=== PATIENT | female | born 1945 | race Caucasian/White ===

== ENCOUNTER 2019-04-06 11:15 | Inpatient (IN) | payer MEDICARE, MEDICAID ==
[~2019-04-06] VITALS: Ht 160 cm; Wt 74.8 kg
[2019-04-06] VITALS (9 sets, daily range): BP systolic 110–149; BP diastolic 50–87
--- NOTE | 2019-04-06 11:23 | NUR ---
CODE STROKE ACTIVATED
--- NOTE | 2019-04-06 11:25 | NUR ---
PATIENT TAKEN TO CT.
[2019-04-06] MEDS ORDERED: IOHEXOL-350 100 ML VIAL IV ONE (11:28)
--- NOTE | 2019-04-06 11:28 | NUR ---
PATIENT AWAKE ALERT TO NAME NOTED DURING ASSESTMENT RT SIDE WEAKNESS DRIFT TO RT ARM AND RT LEG ,LAST WELL KNOWN TIME UNKNOWN @ THIS TIME ,TO CT HEAD WITH MONITOR ,OBTAINED HEPLOCK 20 RAC
[2019-04-06 11:30] LABS: BASOPHILS % (AUTO) 0.3 % (0.0-2.0); EOSINOPHILS % (AUTO) 0.3 % (0.0-6.0); HEMATOCRIT 47 % (33-45); HEMOGLOBIN 15.8 g/dL (11.5-14.8); LYMPHOCYTES # (AUTO) 1.3 /CMM (0.8-4.8); LYMPHOCYTES % (AUTO) 14.4 % (20.0-44.0); MEAN CORPUSCULAR HGB CONC 34 g/dl (31.0-36.0); MEAN CORPUSCULAR VOLUME 94 fL (82-100); MONOCYTES # (AUTO) 0.6 /CMM (0.1-1.30); MONOCYTES % (AUTO) 7.1 % (2.0-12.0); NEUTROPHILS # (AUTO) 6.8 /CMM (1.8-8.9); NEUTROPHILS % (AUTO) 77.9 % (43.0-81.0); PLATELET COUNT (AUTO) 166 /CMM (150-450); RED BLOOD CELL COUNT(AUTO) 5.03 MIL/uL (4.0-5.2); WHITE BLOOD COUNT (AUTO) 8.7 K/uL (4.3-11.0)
[2019-04-06 11:36] LABS: CALCIUM, SERUM 9.4 mg/dL (8.5-10.1); CARBON DIOXIDE 29 mmol/L (21-32); CHLORIDE 106 mmol/L (98-107); CREATININE 0.7 mg/dL (0.6-1.3); GLUCOSE 120 mg/dL (74-106); POTASSIUM 4.1 mmol/L (3.5-5.1); SODIUM SERUM 141 mmol/L (136-145); UREA NITROGEN, BLOOD 17 mg/dL (7-18)
--- NOTE | 2019-04-06 11:40 | NUR ---
CALLED NURSING SUP TELE BED.
[2019-04-06 11:44] LABS: CHOLESTEROL 189 mg/dL (<200); HDL CHOLESTEROL 56 mg/dL (40-60); LDL 122 mg/dL (0-99); TRIGLYCERIDES 59 mg/dL (30-150)
[2019-04-06] MEDS ORDERED: SIMV-46 PO (11:46)
[2019-04-06] MEDS ORDERED: ATEN25TA PO (11:46)
[2019-04-06] MEDS ORDERED: ASCO-352 PO (11:46)
[2019-04-06] MEDS ORDERED: RIVA10TA PO (11:46)
[2019-04-06] MEDS ORDERED: LEVO100T9 PO (11:46)
[2019-04-06] MEDS ORDERED: LORA10TA7 PO (11:46)
[2019-04-06] MEDS ORDERED: DIGO125T PO (11:46)
[2019-04-06] MEDS ORDERED: ZINC220C6 PO (11:46)
[2019-04-06] MEDS ORDERED: MULT-24 PO (11:46)
--- NOTE | 2019-04-06 12:02 | NUR ---
Tele Yves @ bedside
--- NOTE | 2019-04-06 12:03 | NUR ---
BED 324-1
--- NOTE | 2019-04-06 12:10 | NUR ---
No TPA per Neuro
--- NOTE | 2019-04-06 12:22 | NUR ---
PAGED [facility].
--- NOTE | 2019-04-06 12:23 | NUR ---
CALLED NURSING SUP FOR ICU BED UPGRADE.
[2019-04-06] MEDS ORDERED: PROTHROMBIN COMPLEX CONCENTR IV ONE ×3 (12:30→14:30)
[2019-04-06] MEDS ORDERED: WATER FOR INJECTION STERILE IV ONE ×3 (12:30→14:30)
--- NOTE | 2019-04-06 12:42 | NUR ---
Patient NISH Score 13 noted patient RT side weakness and Rt facial drooping weakness to Rt side her swallow Eval failed (RN )
--- NOTE | 2019-04-06 13:05 | NUR ---
Pharmacy Marcelina @ bedside double check meds and drip
--- NOTE | 2019-04-06 13:30 | NUR ---
Edgar given called Pharmacy spoke to Marcelina she came @ bedside meds in the apr un able sign in ,Marcelina will check and shewill be back
--- NOTE | 2019-04-06 13:47 | NUR ---
Patient Sander Chang clean energy policy analyst @ bedside
--- NOTE | 2019-04-06 13:53 | NUR ---
Dr. Garcia @ bedside spoke to Family @ bedside regarding care and plan ,result
--- NOTE | 2019-04-06 14:06 | NUR ---
NURSING SUP GAVE ICU BED 259. GIVE 5 MINUTES BEFORE TAKING PT UP.
--- NOTE | 2019-04-06 15:07 | NUR ---
Jaxson arthur to Britany GILL 259
--- NOTE | 2019-04-06 15:10 | NUR ---
RN NOTE: Received patient in Room 259, patient was awake and alert, Stateless speaking only. Transferred to the bed and made her comfortable. Complete body assessment done. Skin intact with (L) cheek abrasion noted with 3 stitches. No facial drooping was noted. (R) upper and lower extremity weakness was noted. Able to follow simple commands. HOB elevated. O2 2L/min via NC saturating 95% with controlled A. fib on the ferruler. (R) AC 20G and (R) wrist 22G was placed from ER. Call light within reach. Needs anticipated. Debra Silva DNP was in the unit and made aware of the patient's admission to the unit. Pending admission orders.
[2019-04-06] MEDS ORDERED: BLOOD SUGAR DIAGNOSTIC 1 EACH STRIP IN SCH (17:30)
[2019-04-06] MEDS: BLOOD SUGAR DIAGNOSTIC 1 EACH STRIP IN SCH (18:03)
--- NOTE | 2019-04-06 19:45 | NUR ---
RN NOTE: Bedside report was given to BRIDGET Moulton for continuity of care. Patient passed bedside swallow evaluation by the RN. Daughter Emely at the bedside and patient was noted swallowing well and drinking thin liquid with no discomfort and no coughing noted. Last NIHSS score was 4 and Debra Silva DNP was informed about it. Updated the patient's contact information at the patient and informed BRIDGET Moulton to contact Emely first then Jenny (another daughter) of the patient.
--- NOTE | 2019-04-06 22:06 | NUR ---
PROJECT DEVELOPMENT COORDINATOR. INITIAL ASSESSMENT. RECEIVED THE PT REST ON THE BED. AWAKE, ALERT FOLLOW COMMANDS , RT SIDE FACIAL DROOP AND RT SIDE UPPER AND LOWER EXTREMITY WEAKNESS. HOB ELEVATED. WILL CONTINUE TO MONITOR VITALS.
[2019-04-07] VITALS (24 sets, daily range): BP systolic 91–160; BP diastolic 53–99
[2019-04-07] MEDS: BLOOD SUGAR DIAGNOSTIC 1 EACH STRIP IN SCH ×5 (00:44→23:49)
[2019-04-07 04:29] LABS: BASOPHILS % (AUTO) 0.3 % (0.0-2.0); EOSINOPHILS % (AUTO) 0.8 % (0.0-6.0); HEMATOCRIT 45 % (33-45); HEMOGLOBIN 15.1 g/dL (11.5-14.8); LYMPHOCYTES # (AUTO) 1.4 /CMM (0.8-4.8); LYMPHOCYTES % (AUTO) 16.5 % (20.0-44.0); MEAN CORPUSCULAR HGB CONC 34 g/dl (31.0-36.0); MEAN CORPUSCULAR VOLUME 93 fL (82-100); MONOCYTES # (AUTO) 0.7 /CMM (0.1-1.30); NEUTROPHILS # (AUTO) 6.2 /CMM (1.8-8.9); NEUTROPHILS % (AUTO) 74.4 % (43.0-81.0); PLATELET COUNT (AUTO) 168 /CMM (150-450); RED BLOOD CELL COUNT(AUTO) 4.81 MIL/uL (4.0-5.2); WHITE BLOOD COUNT (AUTO) 8.4 K/uL (4.3-11.0)
[2019-04-07 04:46] LABS: CALCIUM, SERUM 8.9 mg/dL (8.5-10.1); CREATININE 0.6 mg/dL (0.6-1.3); POTASSIUM 3.8 mmol/L (3.5-5.1)
--- NOTE | 2019-04-07 06:09 | NUR ---
RESEARCH NEUROPSYCHOLOGIST. AM CARE. ORAL CARE, BED BATH GIVEN. LINEN CHANGED. REMAINING SAME OXYGEN 2L VIA NASAL CANNULA TOLERATED WELL. SAT 96%. NO ACUTE DISTRESS NOTED, TESTER/LIFT TRUCKER SHOWING A FIB, HOB ELEVBATED, NEURO STATUS SAME. NO NEW CHANGES. RT SIDE WEAKNESS. WILL CONTINUE TO MONITOR VITALS.
--- NOTE | 2019-04-07 09:47 | NUR ---
received pt from shift supervisor film processing, s/p hemorrhagic and ischemic stroked, R side weakness, alert, follows commands, speech is clear, R side mild weakness, able to swallow, A fib controlled, NC 2L, tolerates diet, uses bedpan, good urine output, v/s stable, no pain, pt turned and repositioned, daughter at the bedside.
[2019-04-07] MEDS ORDERED: LORATADINE 10 MG TABLET PO PRN (10:00)
[2019-04-07] MEDS: DIGOXIN 0.125 MG TABLET PO SCH (12:45)
--- NOTE | 2019-04-07 13:28 | NUR ---
Social service consult requested by MD for stroke protocol. Per chart review and MD notes, pt is a 73-year-old female history of atrial fibrillation and HLD who presented to the ED via EMS paramedics after staff in her apartment found her on the ground. RADIATION PROTECTION ENGINEER along with JAKI Ochoa met with the pt bedside. Pt is Kazakh speaking. JAKI Ochoa assisted with translation. Pt is altered, disoriented and does not respond appropriately to questions at this time. Pt is unable to provide meaningful information. RADIATION PROTECTION ENGINEER is unable to complete the PHQ-9 assessment at this time. RADIATION PROTECTION ENGINEER to complete the PHQ-9 assessment once pt is alert and oriented enough to provide meaningful information.
--- NOTE | 2019-04-07 16:16 | NUR ---
pt is resting in the bed, alert, follows commands, less weakness on the R side, walked with PT, A fib controlled, on 2L NC saturating well, tolerates diet, OK urine output, v/s stable, no pain, pt cleaned an repositioned.
[2019-04-07] MEDS: ATENOLOL 25 MG TABLET PO SCH (17:00)
--- NOTE | 2019-04-07 19:25 | NUR ---
ICU/RN notes PATIENT RECEIVED IN BED, RESTING COMFORTABLY AT THIS TIME, IN NO ACUTE DISTRESS, BREATHING EVEN AND UNLABORED. NO SHORTNESS OF BREATH NOTED. PATIENT ALERT AND ORIENTED X 2, DENIES ANY PAIN OR DISCOMFORT AT THIS TIME. A-FIB ON THE MONITOR. IV SITES WITH NO S/S OF INFECTION, INFILTRATION. DAUGHTER AT BED SIDE. SAFETY MAINTAINED, BED AT THE LOWEST LOCKED POSITION, BED ALARM ON, EDUCATED PATIENT TO USE CALL LIGHT FOR ASSISTANCE, CALL LIGHT WITHIN EASY REACH. WILL CONTINUE TO MONITOR PER PLAN OF CARE.
[2019-04-07] MEDS: ATORVASTATIN 40 MG TABLET PO SCH (22:29)
[2019-04-08] VITALS (17 sets, daily range): BP systolic 101–140; BP diastolic 30–114
[2019-04-08 04:38] LABS: BASOPHILS % (AUTO) 0.4 % (0.0-2.0); EOSINOPHILS % (AUTO) 2.2 % (0.0-6.0); HEMATOCRIT 45 % (33-45); HEMOGLOBIN 15.3 g/dL (11.5-14.8); LYMPHOCYTES # (AUTO) 1.8 /CMM (0.8-4.8); LYMPHOCYTES % (AUTO) 27.1 % (20.0-44.0); MEAN CORPUSCULAR HGB CONC 34 g/dl (31.0-36.0); MEAN CORPUSCULAR VOLUME 94 fL (82-100); MONOCYTES # (AUTO) 0.6 /CMM (0.1-1.30); MONOCYTES % (AUTO) 9.6 % (2.0-12.0); NEUTROPHILS # (AUTO) 4.1 /CMM (1.8-8.9); NEUTROPHILS % (AUTO) 60.7 % (43.0-81.0); PLATELET COUNT (AUTO) 158 /CMM (150-450); RED BLOOD CELL COUNT(AUTO) 4.81 MIL/uL (4.0-5.2); WHITE BLOOD COUNT (AUTO) 6.8 K/uL (4.3-11.0)
[2019-04-08 04:57] LABS: CALCIUM, SERUM 8.8 mg/dL (8.5-10.1); CREATININE 0.7 mg/dL (0.6-1.3); POTASSIUM 3.6 mmol/L (3.5-5.1)
[2019-04-08] MEDS: BLOOD SUGAR DIAGNOSTIC 1 EACH STRIP IN SCH ×4 (06:00→23:29)
--- NOTE | 2019-04-08 06:58 | NUR ---
ICU/RN exit notes PATIENT REMAINED IN BED, RESTING COMFORTABLY AT THIS TIME, IN NO ACUTE DISTRESS, BREATHING EVEN AND UNLABORED. NO SHORTNESS OF BREATH NOTED. PATIENT ALERT AND ORIENTED X 2, THAI SPEAKING, DENIES ANY PAIN OR DISCOMFORT AT THIS TIME. A-FIB ON THE MONITOR. IV SITES WITH NO S/S OF INFECTION, INFILTRATION. DUE MEDICATIONS GIVEN ORDERED, TOLERATED WELL. NEEDS ATTENDANT, KEPT CLEAN AND DRY. STILL WITH MILD RIGHT SIDED WEAKNESS. SAFETY MAINTAINED, BED AT THE LOWEST LOCKED POSITION, BED ALARM ON. CALL LIGHT WITHIN EASY REACH. WILL ENDORSE TO AM SHIFT NURSE FOR HELEN.
[2019-04-08] MEDS: LEVOTHYROXINE SODIUM 100 MCG TABLET PO SCH (07:34)
--- NOTE | 2019-04-08 08:07 | NUR ---
received pt from harnessmaker apprentice, alert, follows commands, mild R side weakness, A fib controlled, 2L 02 sat well, no edema, tolerates feeding, OK urine output, v/s stable, no pain, pt turned and repositioned.
[2019-04-08] MEDS: ZINC SULFATE 220 MG CAPSULE PO SCH (08:46)
[2019-04-08] MEDS: MULTIVITAMINS,THERAGRAN 1 UDTAB TABLET PO SCH (08:46)
[2019-04-08] MEDS: ATENOLOL 25 MG TABLET PO SCH ×2 (08:47→16:33)
[2019-04-08] MEDS ORDERED: DIGOXIN INJ 0.5 MG/2 ML AMPUL IV ONE (10:00)
[2019-04-08] MEDS: DIGOXIN 0.125 MG TABLET PO SCH (12:05)
--- NOTE | 2019-04-08 14:34 | NUR ---
pt transferred to [facility], ACLS followed, a/o x 4, v/s stable, no pain.
--- NOTE | 2019-04-08 14:45 | NUR ---
RN INTERNATIONAL NOTE RECEIVED REPORT FROM JARVIS GILL.PATIENT IN ROOM 117-2.ALERT ORIENTED.ABLE TO MAKE NEEDS KNOWN.FAMILY AT BEDSIDE.IV LINES ARE INTACT AND PATENT.BE DI SLOW AND IN LOCKED POSITION.MAL LIGHT IN REACH.BED ALARM ON .SRX3.ON TELE MONITOR AFIB CONTROLLED WITH HR IN 70'S.WILL CONTINUE TO MONITOR.
--- NOTE | 2019-04-08 15:35 | NUR ---
Social service consult requested by MD for stroke protocol. Per chart review and MD notes, pt is a 73-year-old female history of atrial fibrillation and HLD who presented to the ED via EMS paramedics after staff in her apartment found her on the ground. SHREDDED FILLER MACHINE WRAPPER LAYER met with pt. and her daughter Jenny and son Puma bedside. Pt is alert and oriented x 2. Pt appears to be confused and is not able to provide information. Pt. was not able to state her date of or home address. Daughter reports, pt was able to state date of and address prior to this hospitalization. Per daughter pt resides with her son Puma in a two story house. Pt. was independent with ADLs prior to this hospitalization. Pt is not able to articulate if she is feeling depressed or sad. Pt was able to use a walker with PT today with assistance. Pt appears to have good family support. Pt's daughters Jenny and Emely are her emergency contacts. SHREDDED FILLER MACHINE WRAPPER LAYER provided family with active listening and supportive counseling. PHQ-9 assessment was completed.
--- NOTE | 2019-04-08 18:50 | NUR ---
PIPE STEM ALIGNER CLOSING NOTE PATIENT IN BED.ALERT ORIENTED.ABLE TO MAKE NEEDS KNOWN.FAMILY AT BEDSIDE.IV LINES ARE INTACT AND PATENT.BED IS LOW AND IN LOCKED POSITION.CALL LIGHT IN REACH.BED ALARM ON .SRX3.ON TELE MONITOR AFIB CONTROLLED WITH HR DOWN TO 40'S TO 50'S WITH PAUSE.PATIENT ASYMPTOMATIC. MADE AWARE.NNO.WILL CONTINUE TO MONITOR.WILL ENDORSE TO PM NURSE FOR HELEN.
--- NOTE | 2019-04-08 19:03 | NUR ---
RN NOTE: RECEIVED AWAKE ON BED SURROUNDED BY HER RELATIVES, A/OX4 ARMENIAN SPEAKING, VERY LITTLE MAURITANIAN, WITH RIGHT SIDED WEAKNESS, ON 02 AT 2L/MIN, A.FIB CONTROLLED RATE RANGE FROM 30-40-50'S, PMD WAS AWARE IN THE MORNING SHIFT THAT HER HR IS FLUCTUATING DOWN WITH LONG PAUCES, ASYMPTOMATIC,PER ENDORSEMENT SHE WALK WITH PT TODAY, SHE STILL USE BED SIDE COMMODE, CANNULA ON THE RW G#20, FALL,SAFETY AND ASPIRATION PRECAUTION OBSERVED,
--- NOTE | 2019-04-08 20:40 | NUR ---
RN NOTES: CALLED TO SEE THE PATIENT DAUGHTER WAS VERBALIZING HER RIGHT LEG LOOKS SWOLLEN, RN ASSESSED, THERE IS A LITTLE DIFFERENCE BETWEEN THE SIZE OF RIGHT AND LEFT LEG, TEMPERATURE CHECK, BOTH ARE WARM TO TOUCH, POPLITEAL PULSE CHECK BOTH ARE PRESENT AND BOUNDING, AT THIS MOMENT NO PAIN OR DISCOMFORT, PATIENT WAS ABLE TO WALK IN THE MORNING WITH PT,SHE IS S/P FALL 04/06/19.EXPLAINED TO DAUGHTER WILL CONTINUE TO MONITOR.
[2019-04-08] MEDS: ATORVASTATIN 40 MG TABLET PO SCH (22:00)
--- NOTE | 2019-04-08 22:40 | NUR ---
RN NOTES: NOTED THAT HER CONTROLLED A.FIB HR RANGES FROM 40'S-42-48, AND PERIOD IT DROP DOWN TO 38-39 WITH LONG PAUSES,NO CHEST PAIN, NO DISCOMFORT, PATIENT IS LYING COMFORTABLY AND SLEEPING, WHILE OPTICAL INSTRUMENT ASSEMBLER(DONNY) DOING ROUNDS NOTIFIED ABOUT THE CHANGES, HE INSTRUCT TO KEEP ON CLOSE WATCH LONG SHE IS NOT HAVING ANY SYMPTOM KEEP HER CALM AND RESTED.
[2019-04-09] VITALS: BP 112/54
--- NOTE | 2019-04-09 00:11 | NUR ---
RN NOTES: KEEP ON CLOSE VISUAL CHECK AT FREQUENT INTERVALS, TAKING A NAP,NO PAIN OR DISCOMFORT, NO SIGN OF RESPIRATORY DISTRESS BLOOD SUGAR-125, LYING COMFORTABLY.CALL LIGHT WITHIN EASY REACH.
--- NOTE | 2019-04-09 01:01 | NUR ---
RN NOTES: AWAKE STILL WITH RIGHT SIDED WEAKNESS, A/O2-3, NO PAIN OR DISCOMFORT, ABLE TO MOVE BUE AND BLE,SWELLING ON THE RLE REMAIN THE SAME, KEPT OBSERVE, ENCOURAGE TO SLEEP AND REST.CALL LIGHT KEPT WITHIN EASY REACH.
[2019-04-09 04:00] VITALS: BP 115/67
--- NOTE | 2019-04-09 05:03 | NUR ---
RN NOTES: AWAKE, ASSISTED TO THE BED SIDE COMMODE, ABLE TO STAND AND SIT ON THE COMMODE WITH MINIMAL ASSIST, SHE PEE AND HAD BM, ACTIVITY TOLERATED WITHOUT PAIN OR DISCOMFORT, RLE REMAIN ON SAME SIZE, NO PAIN OR DISCOMFORT. MORNING CARE DONE, KEEP COMFORTABLE IN BED.
[2019-04-09] MEDS: BLOOD SUGAR DIAGNOSTIC 1 EACH STRIP IN SCH ×2 (05:21→12:18)
[2019-04-09 06:56] LABS: BASOPHILS % (AUTO) 0.4 % (0.0-2.0); EOSINOPHILS % (AUTO) 2.4 % (0.0-6.0); HEMATOCRIT 46 % (33-45); HEMOGLOBIN 15.2 g/dL (11.5-14.8); LYMPHOCYTES # (AUTO) 1.7 /CMM (0.8-4.8); LYMPHOCYTES % (AUTO) 22.9 % (20.0-44.0); MEAN CORPUSCULAR HGB CONC 33 g/dl (31.0-36.0); MEAN CORPUSCULAR VOLUME 94 fL (82-100); MONOCYTES # (AUTO) 0.7 /CMM (0.1-1.30); MONOCYTES % (AUTO) 8.9 % (2.0-12.0); NEUTROPHILS % (AUTO) 65.4 % (43.0-81.0); PLATELET COUNT (AUTO) 154 /CMM (150-450); RED BLOOD CELL COUNT(AUTO) 4.87 MIL/uL (4.0-5.2); WHITE BLOOD COUNT (AUTO) 7.6 K/uL (4.3-11.0)
[2019-04-09 07:06] LABS: CALCIUM, SERUM 8.5 mg/dL (8.5-10.1); CREATININE 0.6 mg/dL (0.6-1.3); POTASSIUM 3.9 mmol/L (3.5-5.1)
--- NOTE | 2019-04-09 07:20 | NUR ---
RN NOTES: AWAKE, NO COMPLAINTS OF PAIN, SHEET FOLDER FOUND NUMEROUS MEDICATION OF PATIENT AT BED SIDE, EXPLAINED TO PATIENT WITH THE HELP OF ABSORPTION AND ADSORPTION ENGINEER IT WILL BE LISTED AND TURN OVER TO PHARMACY, SHE AGREED AND SIGNED AND IT WILL BE GIVEN BACK TO HER UPON DISCHARGE. FALL,SAFETY AND ASPIRATION PRECAUTION OBSERVED, ENDORSED FOR CONTINUITY OF CARE.
[2019-04-09] MEDS: LEVOTHYROXINE SODIUM 100 MCG TABLET PO SCH (07:44)
--- NOTE | 2019-04-09 07:45 | NUR ---
RN OPENING NOTES RECEIVED PATIENT IN BED, AWAKE. A/O X3. VERBALLY RESPONSIVE AND ABLE TO MAKE NEEDS KNOWN. WELSH SPEAKING, DENIES ANY PAIN OR DISCOMFORT. ON NC @2L TOLERATING WELL. NO SOB NOTED. ON TELE MONITOR SR 62 . DENIES ANY CHEST PAIN. IV ACCESS ON L WRIST #20 SALINE LOCKED. INTACT, PATENT AND FLUSHED WELL. NO SIGNS OF INFILTRATION. BED ON LOWEST POSITION AND LOCKED. CALL LIGHT WITHIN REACH FOR EASY ACCESS . WILL CONTINUE TO MONITOR.
[2019-04-09 08:00] VITALS: BP_SYST 116; BP_DIAS 53; BP_DIAS 60
[2019-04-09] MEDS: MULTIVITAMINS,THERAGRAN 1 UDTAB TABLET PO SCH (08:52)
[2019-04-09] MEDS: ZINC SULFATE 220 MG CAPSULE PO SCH (08:53)
[2019-04-09] MEDS: ATENOLOL 25 MG TABLET PO SCH (08:54)
[2019-04-09] MEDS ORDERED: ATOR40TA PO (09:52)
[2019-04-09] MEDS ORDERED: DIGOXIN 0.125 MG TABLET PO SCH (13:00)
--- NOTE | 2019-04-09 14:58 | NUR ---
RN NOTES REPORT GIVEN TO ROBINA AT [facility].
[2019-04-09 16:00] VITALS: BP_SYST 111; BP_SYST 116; BP_DIAS 60; BP_DIAS 68
--- NOTE | 2019-04-09 17:51 | NUR ---
FUNERAL HOME ASSOCIATE NOTES PATIENT PICKED UP BY AMBULANCE. IN STABLE CONDITION. IV ACCESS REMOVED, DISCHARGE INSTRUCTION GIVEN TO PATIENT AND FAMILY AND HANDED THE COPY TO THEM.
== END 2019-04-09 18:00 | DRG 64 ==
LOC: ER 11:18 → ICU 14:21 → TELE1 04-08 14:18 → MEDSG1 04-09 08:45
PROVIDERS: ADMIT Hospitalist; ATTEND Internal Medicine
DX: I63.512 Cerebral infarction due to unspecified occlusion or stenosis of left middle cerebral artery (principal); I61.3 Nontraumatic intracerebral hemorrhage in brain stem; I48.91 Unspecified atrial fibrillation; E78.5 Hyperlipidemia, unspecified; E03.9 Hypothyroidism, unspecified; Z79.899 Other long term (current) drug therapy; I25.10 Atherosclerotic heart disease of native coronary artery without angina pectoris; Z86.718 Personal history of other venous thrombosis and embolism; Z79.01 Long term (current) use of anticoagulants; M19.90 Unspecified osteoarthritis, unspecified site; I67.2 Cerebral atherosclerosis; I50.9 Heart failure, unspecified; I11.0 Hypertensive heart disease with heart failure; R40.2411 Glasgow coma scale score 13-15, in the field [EMT or ambulance]; R29.711 NIHSS score 11; I63.312 Cerebral infarction due to thrombosis of left middle cerebral artery
CPT/HCPCS: 36415; 70450-TC; 70496-TC; 70498-TC; 71045-TC; 80048-TC; 80061-TC; 80162-TC; 82962-TC; 84484-TC; 85025-TC; 85385-TC; 85730-TC; 87081-TC; 92521; 92611-TC; 93307-TC; 97110-TC; 97116-TC; 97530-TC; C9132; G0378; J1160; Q9967